=== PATIENT | female | born 1940 | race Caucasian/White ===

== ENCOUNTER → 2019-02-07 | Outpatient (CLI) | payer OTHER ==
[~2019-02-07] MED LIST: ASA81 MG PO; CIPRO; CRESTOR40 MG; DICLOFENAC SODI50 MG PO; EFFEXOR XR75 MG; KLONOPIN0.5 MG/TAB; LEVAQUIN500 MG PO; NEURONTIN300 MG; PERCOCET 5-3251 EACH PO; PERCOCET 5/3251 TAB PO; PLAVIX75 MG; PLAVIX75 MG PO; SULFAMETHOXAZOL1 TA6 PO; SYNTHROID100 MCG; SYNTHROID125 MCG PO; XARELTO10 MG PO; ZETIA10 MG PO
== END | disposition home or self-care (01) ==
LOC: NUCLEAR 01-24 07:00
DX: I25.10 Atherosclerotic heart disease of native coronary artery without angina pectoris (principal); I20.9 Angina pectoris, unspecified
CPT/HCPCS: 78452; 93017; A9500; J0153

== ENCOUNTER 2021-03-17 08:45 | Inpatient (IN) | payer OTHER ==
[~2021-03-17] VITALS: Ht 157.5 cm; Wt 74.8 kg
[2021-03-20] MEDS ORDERED: CRESTOR40 MG PO (10:21)
[2021-03-20] MEDS ORDERED: ISORBIDE PO (10:21)
[2021-03-20] MEDS ORDERED: GABAPEN PO (10:22)
[2021-03-20] MEDS ORDERED: CALCIO PO (10:22)
[2021-03-20] MEDS ORDERED: TRAZODONE HCL150 MG PO (10:23)
[2021-03-20] MEDS ORDERED: SENNA (10:23)
[2021-03-20] MEDS ORDERED: HYDROCHLOROTH12.5 MG PO (10:24)
[2021-03-20] MEDS ORDERED: SYNTHROID100 MCG PO (10:25)
[2021-03-20] MEDS ORDERED: NTG (10:32)
[2021-03-20] MEDS ORDERED: ALPRAZOLAM XR0.5 MG PO (14:05)
[2021-03-24] MEDS ORDERED: VENLAFAXINE HCL75 M1 (08:39)
[2021-03-24] MEDS ORDERED: GABAPENTIN800 M1 (08:39)
[2021-03-24] MEDS ORDERED: EQ SENNA-S TAB1 EACH PO (08:39)
[2021-03-24] MEDS ORDERED: NORVASC2.5 MG (08:40)
[2021-03-24] MEDS ORDERED: ISOSORBIDE MONO30 M2 (08:40)
[2021-03-24] MEDS ORDERED: CALCIUM500 M1 PO (08:42)
[2021-03-24] MEDS ORDERED: NITROSTAT0.3 MG (08:50)
[2021-03-27] MEDS ORDERED: PERCOCET 5-3251 EACH PO (07:25)
[2021-03-27] MEDS ORDERED: ELIQUIS2.5 MG PO (07:25)
== END 2021-03-27 15:09 | DRG 470 ==
LOC: SURG 03-24 06:34 → O/R 03-24 06:34 → SURH 03-24 08:45 → SURG 03-24 13:09 → SURH 03-24 14:00 → SURG 03-27 15:09
PROVIDERS: ADMIT Orthopaedic Surgery; ATTEND Orthopaedic Surgery
PROC: 4A12X4Z Monitoring of Cardiac Electrical Activity, External Approach (ICD-10-PCS; 2021-03-24)
PROC: 0SRD0J9 Replacement of Left Knee Joint with Synthetic Substitute, Cemented, Open Approach (ICD-10-PCS; principal; 2021-03-24 14:00)
DX: M17.12 Unilateral primary osteoarthritis, left knee (principal); I10 Essential (primary) hypertension; I25.10 Atherosclerotic heart disease of native coronary artery without angina pectoris